=== PATIENT | male | born 1990 | race Caucasian/White ===

== ENCOUNTER 2020-02-12 21:42 | Observation (INO) | payer OTHER ==
[~2020-02-12 21:42] MED LIST: Iopamidol-370 76% 500 ML 1 ML ONE
[2020-02-12 22:18] LABS: Bilirubin Negative (Negative); Blood, Urine Negative (Negative); Clarity Turbid (Clear); Glucose, Urine (Dipstick) Normal (Negative); Leukocyte Negative Leu/uL (Negative); Nitrite Negative (Negative); Protein, Urine (Dipstick) 10 mg/dL (Neg-Trace); Urobilinogen Normal mg/dL (Less than 2)
[2020-02-12] MEDS ORDERED: Ondansetron ODT 8 MG TAB ONE (22:27)
[2020-02-12 22:48] LABS: Hemoglobin 15.8 g/dL (14.0-18.0); Mean Corpuscular HGB CONC 36.1 g/dL (32.0-36.0); Mean Corpuscular Hemoglobin 31.5 pg (27.0-31.0); Mean Corpuscular Volume 87.2 fL (78.0-98.0); Mean Platelet Volume 7.6 fL (7.4-10.4); Platelet Count 329 thou/uL (130-400); RBC Distribution Width 11.4 % (11.5-14.5); Red Blood Cell (RBC) Count 5.03 mill/uL (4.70-6.10); White Blood Cell (WBC) Count 14.5 thou/uL (4.8-10.8)
[2020-02-12 23:00] LABS: Band 2 % (5-11); Lymphocytes 17 % (21-51); MDiff Complete? YES; Monocytes 6 % (0-10); Neutrophil 75 % (42-75); Platelet Morphology Comment Appears Adequate
[2020-02-12 23:20] LABS: ALT (SGPT) 22 U/L (8-55); AST (SGOT) 20 U/L (5-34); Albumin 4.9 g/dL (3.5-5.0); Alkaline Phosphatase 71 U/L (40-110); Anion Gap 12 mmol/L (10-20); BUN (Urea Nitrogen) 11 mg/dL (8.9-20.6); Bilirubin, Total 0.6 mg/dL (0.2-1.2); Calc. Creatinine Clearance 0 mL/min (70-130); Calcium 9.6 mg/dL (7.8-10.44); Carbon Dioxide 26 mmol/L (22-29); Chloride 103 mmol/L (98-107); Estimated GFR-MDRD 90; Globulin 3.4 g/dL (2.4-3.5); Glucose 113 mg/dL (70-105); Lipase 13 U/L (8-78); Potassium 3.6 mmol/L (3.5-5.1); Protein, Total 8.3 g/dL (6.0-8.3); Sodium 137 mmol/L (136-145)
[2020-02-12] MEDS ORDERED: Morphine 4 MG/ML VIAL ONE (23:46)
[2020-02-13] MEDS ORDERED: Piperacillin/Tazobactam 3.375 GM VIAL ONE ×2 (01:29→01:32)
[2020-02-13] MEDS ORDERED: Morphine 4 MG/ML VIAL ONE (01:39)
[2020-02-13] MEDS ORDERED: Ondansetron PF 4 MG/2 ML Vial IVP PRN ×2 (02:58→13:49)
[2020-02-13] MEDS ORDERED: Morphine 4 MG/ML VIAL SLOW IVP PRN ×2 (02:58→05:52)
[2020-02-13] MEDS ORDERED: Ondansetron ODT 4 MG TAB SL PRN (02:58)
[2020-02-13] MEDS: Lactated Ringer's 1,000 ML IV SCH ×2 (03:19→11:19)
[2020-02-13 03:42] VITALS: BMI 25.0
[2020-02-13] MEDS: Morphine 4 MG/ML VIAL SLOW IVP PRN ×3 (06:18→09:49)
--- NOTE | 2020-02-13 07:36 | CT ---
PRELIMINARY REPORT/DIRECT RADIOLOGY/EMERGENCY AFTER HOURS PROCEDURE: This report was discussed with PRABHJOT TINSLEY MD by Darlin Arroyo on Feb 13, 2020 01:01:00 CDT. Raul lyles electronically signed by Darlin Arroyo on February 13, 2020 1:01:[address] abdomen and pelvis with contrast: Comparison: None Findings: No significant abnormality in the lung bases. Normal gallbladder. No biliary ductal dilatat ion. No hydronephrosis or symptomatic urinary calculus. The solid organs and vasculature are otherwise normal. Abnormal retrocecal appendix measuring up to 11 mm in diameter. The tip of the appe ndix is in Morison's pouch. There is a probable appendicolith. There may be mild edema surrounding the tip of the appendix. No evidence of abscess. Small amount of free fluid in the pelvis. The reprod uctive organs and urinary bladder are unremarkable. No free air or bowel obstruction. No diverticulitis. Impression: Findings suggestive of early acute appendicitis. There is a retrocecal appendix with the tip of the appendix located in Morison's pouch. Trace free fluid in the pelvis. No suggestion of abscess. ELECTRONICALLY SIGNED BY: Keith Cordoba MD Feb 13, 2020 12:58:47 AM CDT FINAL REPORT CT ABDOMEN AND PELVIS WITH CONTRAST: History: Abdominal pain. Comparison: None.. Findings/impression: Concordant with the preliminary report. Transcribed Date/Time: 02/13/2020 7:59 AM
[2020-02-13] MEDS ORDERED: Piperacillin/Tazobactam 3.375 GM in Sodium Chloride 0.9% 100 ML IVPB SCH ×2 (08:00→14:00)
--- NOTE | 2020-02-13 08:02 | HP ---
CHIEF COMPLAINT: Abdominal pain. HISTORY OF PRESENT ILLNESS: Mr. Mensah is a 29-year-old man, who presented to the ER with a history of sudden onset of abdominal pain at around noon yesterday. He states that this happened shortly after eating. He developed pain in the left upper quadrant. He threw up a couple times, but was not very nauseated. He thinks he was mostly throwing up because the pain was so intense. The pain is worse with motion or activity. He tried taking Gas-X and Pepto-Bismol without any relief. He came to the emergency room and was given some pain medication. At that point, the pain started to migrate more to the right lower quadrant. It has stayed in that location since that time. PAST MEDICAL HISTORY: None. PAST SURGICAL HISTORY: None. FAMILY HISTORY: None. ALLERGIES: NO KNOWN DRUG ALLERGIES. OUTPATIENT MEDICATIONS: Ambien. REVIEW OF SYSTEMS: Ten system review of systems is negative, except per HPI. The patient specifically denies fevers or chills. PHYSICAL EXAMINATION: VITAL SIGNS: The patient is afebrile with normal vital signs. HEENT: Unremarkable. NECK: Supple without lymphadenopathy or thyroid nodules. HEART: Regular in its rate and rhythm without murmurs, rubs, or gallops. LUNGS: Clear to auscultation bilaterally. He does have some pain with deep inspiration. ABDOMEN: Soft and nondistended. He has tenderness to palpation in the right lower quadrant with some voluntary guarding and some mild rebound tenderness. EXTREMITIES: Warm and well perfused without edema. NEURO: No focal deficits. PSYCHIATRIC: Alert, oriented, and appropriate. LABORATORY DATA: White count is mildly elevated. Other labs are unremarkable. IMAGING DATA: CT shows a dilated, thickened appendix without any other acute abnormalities. ASSESSMENT: Acute appendicitis. PLAN: Laparoscopic appendectomy. The patient is on scheduled Zosyn. The diagnosis and recommended treatments were discussed with the patient in detail. Inherent risks of surgery were discussed. These include, but are not limited to, bleeding, infection, risks of anesthesia, damage to nearby structures including bowel, blood vessels and bladder, need for open surgery, need for other procedures. He understands and accepts these risks, and wishes to proceed. Job ID: [id number]
[2020-02-13] MEDS ORDERED: Fentanyl 100 MCG/2 ML VIAL ONE (10:24)
[2020-02-13] MEDS ORDERED: Midazolam HCl 2 mg/2 ml Vial ONE (10:25)
[2020-02-13] MEDS ORDERED: Lidocaine 1% w/Epinephrine 1:100K 20 ML VIAL ONE (10:27)
[2020-02-13] MEDS ORDERED: Bupivacaine 0.25% HCL 30 ML VIAL ONE (10:27)
[2020-02-13] MEDS ORDERED: EPHEDRINE 25 MG/5 ML SYRINGE ONE (11:24)
[2020-02-13] MEDS ORDERED: PROPOFOL 200 MG/20 ML VIAL ONE (11:24)
[2020-02-13] MEDS ORDERED: Ondansetron PF 4 MG/2 ML Vial ONE (11:24)
[2020-02-13] MEDS ORDERED: Glycopyrrolate 0.2 MG/ML 5 ML SYRINGE ONE (11:24)
[2020-02-13] MEDS ORDERED: Lidocaine 1% PF 5 ML VIAL ONE (11:24)
[2020-02-13] MEDS ORDERED: Dexamethasone 20 MG/5 ML VIAL ONE (11:24)
[2020-02-13] MEDS ORDERED: Rocuronium Bromide 10 MG/ML (10ML VIAL) ONE (11:24)
[2020-02-13] MEDS ORDERED: Esmolol 100 MG/10 ML VIAL ONE (11:24)
[2020-02-13] MEDS ORDERED: Succinylcholine Chloride 20 MG/ML 10 ml SYRINGE FS ONE (11:24)
[2020-02-13] MEDS ORDERED: Meperidine HCl/PF 25 MG/ML VIAL ONE (11:55)
[2020-02-13] MEDS ORDERED: Promethazine HCl 25 MG/ML VIAL SLOW IVP PRN (12:01)
[2020-02-13] MEDS ORDERED: Promethazine HCl 25 MG/ML VIAL IM PRN (12:01)
[2020-02-13] MEDS ORDERED: Ondansetron HCl/PF 4 MG/2 ML Vial IVP PRN (12:01)
[2020-02-13] MEDS ORDERED: traMADol HCl 50 MG TAB PO PRN ×2 (13:42)
[2020-02-13] MEDS ORDERED: HYDROcodone/Acetaminophen 5/325 mg Tablet PO PRN (13:43)
[2020-02-13] MEDS ORDERED: Acetaminophen 325 MG TAB PO PRN ×2 (13:44)
[2020-02-13] MEDS ORDERED: Ibuprofen 200 MG TAB PO PRN ×2 (13:46→13:47)
[2020-02-13] MEDS ORDERED: Promethazine 25 MG TAB PO PRN (13:48)
[2020-02-13] MEDS ORDERED: Ondansetron ODT 4 MG TAB PO PRN (13:49)
[2020-02-13] MEDS ORDERED: Sodium Chloride 0.9% 1,000 ML IV SCH (14:00)
[2020-02-13 16:01] VITALS: BP 108/63; TEMP 98.9
--- NOTE | 2020-02-20 13:22 | PDOC.OP ---
Operative Note - Operative Note Operative Note: PROCEDURE: Laparoscopic appendectomy. SURGEON: Glendy Sawyer M.D. DATE OF PROCEDURE: 02/13/2020 PREOPERATIVE DIAGNOSIS: Appendicitis. POSTOPERATIVE DIAGNOSIS: Appendicitis. HISTORY: Patient who presented with signs and symptoms concerning for appendicitis. CT scan showed evidence of acute appendicitis without perforation seen and recommendation was made to proceed with laparoscopic appendectomy. DESCRIPTION OF PROCEDURE: After informed consent was obtained and appropriate antibiotics continued, the patient was taken to the operating room and placed in the supine position and general endotracheal anesthesia was administered. The bladder was decompressed with a Carter catheter and the abdomen was prepped and draped in the standard sterile fashion. Local anesthesia was infused to the skin and subcutaneous tissues superior to the umbilicus. A transverse skin incision was made and a Veress needle placed into the abdominal cavity and carbon dioxide gas insufflated without difficulty. Opening pressure was less than 5. Carbon dioxide gas was insufflated to an intra-abdominal pressure 15 and the patient tolerated this well. The Veress needle was withdrawn and a [place] port advanced under direct laparoscopic vision into the abdominal cavity. Two additional ports were placed in the suprapubic and left lateral abdomen under direct laparoscopic vision after local anesthesia was infused at these sites. There were no significant adhesions. The appendix was identified and appeared inflamed but not perforated. The appendix was grasped by the mesoappendix and elevated. The mesoappendix was then sequentially ligated and divided down to the base of the appendix, which was normal in appearance and was clearly seen to be at the confluence of the tenia. Two Endoloops were placed around the base of the appendix and the appendix was divided between these Endoloops, placed into an EndoCatch bag and drawn out through the suprapubic incision. The suprapubic trocar was then replaced and the operative site was easily irrigated to clear. The suprapubic trocar was removed and the fascia closed under direct laparoscopic vision with a 0 Vicryl suture on a GraNee needle with excellent technical result. The left lateral trocar was then removed and hemostasis verified. Carbon dioxide gas was desufflated through the umbilical trocar which was then removed. The umbilical fascia was closed with a 0 Vicryl suture under direct vision. The skin incisions were irrigated and additional local anesthesia infused at each site. The skin was closed with 4-0 subcuticular Monocryl sutures and Dermabond dressings were placed. The patient was extubated and taken to the recovery room in good condition. Estimated blood loss was minimal. There were no complications. SPECIMEN: Appendix.
== END 2020-02-13 16:04 | disposition home or self-care (01) ==
LOC: ERS 21:42 → SURG A 02-13 01:42
PROVIDERS: ADMIT Surgery; ATTEND Surgery
PROC: 0DTJ4ZZ Resection of Appendix, Percutaneous Endoscopic Approach (ICD-10-PCS; principal; 2020-02-13)
DX: K35.80 Unspecified acute appendicitis (principal); Z79.899 Other long term (current) drug therapy; G47.00 Insomnia, unspecified
CPT/HCPCS: 36415; 74177; 80053; 81003; 83690; 85025; 88304; 96365; 96366; 96375; 96376; G0378; J1100; J2001; J2175; J2250; J2270; J2405; J2543; J2704; J3010; J3490; Q0162; Q9967; S0020